=== PATIENT | female | born 1970 | race Asian ===

== ENCOUNTER 2024-02-25 07:19 | Emergency (ER) | payer MEDICARE, OTHER ==
[~2024-02-25] VITALS: Ht 144.8 cm; Wt 52.7 kg
[2024-02-25 07:42] VITALS: TEMP 97.7
[2024-02-25 08:20] LABS: BASOPHILS % (AUTO) 1.3 % (0.0-2.0); EOSINOPHILS % (AUTO) 0.7 % (1.0-6.0); HEMATOCRIT 42.6 % (36-46); HEMOGLOBIN 14.3 g/dL (12.0-16.0); LYMPHOCYTES # (AUTO) 0.8 K/uL (1.0-4.8); LYMPHOCYTES % (AUTO) 20.8 % (22.0-44.0); MEAN CORPUSCULAR HEMOGLOBIN 32.8 pg (26.0-34.0); MEAN CORPUSCULAR HGB CONC 33.6 G/dL (31.0-37.0); MEAN CORPUSCULAR VOLUME 98 fL (80-100); MONOCYTES # (AUTO) 0.3 K/uL (0.1-1.0); MONOCYTES % (AUTO) 6.6 % (2.0-9.0); NEUTROPHILS # (AUTO) 2.8 K/uL (1.8-7.7); NEUTROPHILS % (AUTO) 70.6 % (40.0-70.0); PLATELET COUNT (AUTO) 228 K/uL (150-450); RED BLOOD CELL COUNT(AUTO) 4.36 MIL/uL (4.00-5.20); RED CELL DISTRIBUTION WIDTH 14.6 % (11.5-14.5); WHITE BLOOD COUNT (AUTO) 3.9 K/uL (4.5-11.0)
[2024-02-25 08:30] LABS: CALCIUM, TOTAL 8.7 mg/dL (8.8-10.5); CREATININE 1.07 mg/dL (0.60-1.30); POTASSIUM 3.7 mmol/L (3.5-5.1)
[2024-02-25] MEDS: LevETIRAcetam 500 MG in DEXTROSE 5%-WATER 100 ML IV ONE (10:02)
[2024-02-25 11:40] VITALS: BP 127/71; PULSE 93; RESP 18
== END 2024-02-25 15:54 | disposition short-term general hospital (02) ==
LOC: EMS 07:20
DX: G91.9 Hydrocephalus, unspecified (principal)
CPT/HCPCS: 99285; 96365; 70450; 80048; 85025; 36415; 93005; J0712; J7060

== ENCOUNTER 2024-06-09 07:45 | Emergency (ER) | payer MEDICARE, OTHER ==
[~2024-06-09] VITALS: Ht 137.2 cm; Wt 46.6 kg
[2024-06-09] MEDS ORDERED: 0.9% SODIUM CHLORIDE 10 ML SYRINGE IVP PRN (08:00)
[2024-06-09] MEDS: SODIUM CHLORIDE 0.9% 1,400 ML IV ONE (08:04)
[2024-06-09] MEDS ORDERED: RIVA20TA PO (08:36)
[2024-06-09] MEDS ORDERED: OMEP20CA12 PO (08:36)
[2024-06-09] MEDS ORDERED: TRAZ150T80 PO (08:36)
[2024-06-09] MEDS ORDERED: MULT-1366 PO (08:36)
[2024-06-09] MEDS ORDERED: CALC-1124 PO (08:36)
[2024-06-09] MEDS ORDERED: QUET25TA36 PO (08:36)
[2024-06-09] MEDS ORDERED: DOCU100C33 PO (08:36)
[2024-06-09] MEDS ORDERED: CHLO473M2 PO (08:36)
[2024-06-09] MEDS ORDERED: DIVA-111 PO (08:36)
[2024-06-09] MEDS ORDERED: SERT-438 PO (08:36)
[2024-06-09] MEDS ORDERED: NYST60PO TP (08:36)
[2024-06-09 08:48] LABS: BASOPHILS % (AUTO) 0.2 % (0.0-2.0); EOSINOPHILS % (AUTO) 0 % (1.0-6.0); HEMATOCRIT 31.8 % (36-46); HEMOGLOBIN 10.4 g/dL (12.0-16.0); LYMPHOCYTES # (AUTO) 0.8 K/uL (1.0-4.8); LYMPHOCYTES % (AUTO) 10.3 % (22.0-44.0); MEAN CORPUSCULAR HEMOGLOBIN 32.9 pg (26.0-34.0); MEAN CORPUSCULAR HGB CONC 32.6 G/dL (31.0-37.0); MEAN CORPUSCULAR VOLUME 101 fL (80-100); MONOCYTES # (AUTO) 0.7 K/uL (0.1-1.0); MONOCYTES % (AUTO) 9.6 % (2.0-9.0); NEUTROPHILS # (AUTO) 5.9 K/uL (1.8-7.7); NEUTROPHILS % (AUTO) 79.9 % (40.0-70.0); PLATELET COUNT (AUTO) 220 K/uL (150-450); RED BLOOD CELL COUNT(AUTO) 3.15 MIL/uL (4.00-5.20); RED CELL DISTRIBUTION WIDTH 17.2 % (11.5-14.5); WHITE BLOOD COUNT (AUTO) 7.4 K/uL (4.5-11.0)
[2024-06-09 08:53] LABS: COVID AG,FIA SOURCE NASAL SWAB
[2024-06-09] MEDS: IBUPROFEN 400 MG TABLET PO ONE (08:54)
[2024-06-09] MEDS: CefTRIAXone 1 GM/DEXTROSE 50 ML IV ONE (08:54)
[2024-06-09 09:01] LABS: ANION GAP 9 mmol/L (8-16); CALCIUM, TOTAL 7.3 mg/dL (8.8-10.5); CARBON DIOXIDE 23 mmol/L (22-29); CHLORIDE 106 mmol/L (98-107); CREATININE 0.93 mg/dL (0.60-1.30); GLOMERULAR FILTR. RATE CALC > 60 mL/min (>60); GLUCOSE,RANDOM 101 mg/dL (70-110); POTASSIUM 3.7 mmol/L (3.5-5.1); SODIUM SERUM 138 mmol/L (136-145); UREA NITROGEN, BLOOD 16 mg/dL (7-18)
[2024-06-09 09:07] LABS: ALBUMIN 1.4 g/dL (3.4-5.0); ALKALINE PHOSPHATASE 81 U/L (46-116); ASPARTATE AMINOTRANSFERASE 29 U/L (15-37); BILIRUBIN,TOTAL 0.4 mg/dL (0.1-1.0); TOTAL PROTEIN, SERUM 6.6 g/dL (6.4-8.2)
[2024-06-09 09:16] LABS: TROPONIN I-HIGH SENSITIVITY 113 ng/L (<51)
[2024-06-09 09:18] LABS: B-TYPE NATRIURETIC PEPTIDE 33 pg/mL (0-100)
[2024-06-09 09:31] LABS: ALANINE AMINOTRANSFERASE 4 U/L (12-78)
[2024-06-09] MEDS: ASPIRIN 300 MG RECTAL SUPPOSITORY PR ONE (09:40)
[2024-06-09 09:41] LABS: SARS-COV2 (COVID) ANTIGEN,FIA Negative (Negative)
[2024-06-09 09:48] LABS: INFLUENZA TYPE A NEGATIVE FOR TYPE A (NEGATIVE); INFLUENZA TYPE B NEGATIVE FOR TYPE B (NEGATIVE)
[2024-06-09 10:08] LABS: RBC MORPHOLOGY COMMENT ABNORMAL RBC MORPH
[2024-06-09] MEDS: AZITHROMYCIN 500 MG/NS 250 ML IV ONE (10:21)
[2024-06-09 10:23] LABS: APPEARANCE,URINE CLEAR (CLEAR); BILIRUBIN,URINE NEGATIVE (NEGATIVE); COLOR,URINE LIGHT YELLOW (YELLOW); GLUCOSE, URINE (UA) NEGATIVE (NEGATIVE); KETONES,URINE NEGATIVE (NEGATIVE); LEUKOCYTE ESTERASE ,URINE NEGATIVE (NEGATIVE); NITRATE,URINE NEGATIVE (NEGATIVE); OCCULT BLOOD,URINE NEGATIVE (NEGATIVE); PH,URINE 7.5 (5.0-8.0); PROTEIN,URINE TRACE mg/dL (NEGATIVE); SPECIFIC GRAVITIY, URINE 1.011 (1.003-1.030); UROBILINOGEN,URINE <=1.0 mg/dL (<=1.0)
[2024-06-09 11:11] LABS: TROPONIN I-HIGH SENSITIVITY 117 ng/L (<51)
[2024-06-09 12:53] VITALS: BP 90/57; PULSE 117; RESP 24; TEMP 97.7; O2SAT 95
== END 2024-06-09 13:11 | disposition short-term general hospital (02) ==
LOC: EMS 07:45
DX: J96.01 Acute respiratory failure with hypoxia (principal); I24.89 Other forms of acute ischemic heart disease; J18.9 Pneumonia, unspecified organism; F84.0 Autistic disorder; Q90.9 Down syndrome, unspecified; F31.9 Bipolar disorder, unspecified; Z20.822 Contact with and (suspected) exposure to COVID-19
CPT/HCPCS: 51702; 71045; 80053; 81003; 83605; 83880; 84145; 84484; 85025; 87040; 87804; 93005; 96361; 96365; 96367; 99285; J0456; J0696; J7030; 36415-L1; 36415-TC